=== PATIENT | female | born 1940 | race Caucasian/White ===

== ENCOUNTER → 2017-07-14 | Outpatient (CLI) | payer MEDICARE, BC ==
[~2017-07-14] MED LIST: ACETAMINOPHEN-H1 TA2 PO; BENICAR HCT 12.1 TA1 PO; CLINDAMYCIN HC300 MG PO; DAYPRO600 M1 PO; LEVOTHYROXIN0.075 M1 PO; METOPROLOL TAR100 M1 PO; SIMVASTATIN20 MG PO; VENLAFAXINE HYD75 M3 PO; XARE20MG PO; XARELTO15 M1 PO; ZITHROMAX Z PA250 MG PO; ZYRTEC10 MG PO
== END | disposition home or self-care (01) ==
LOC: US 12:24
DX: I82.511 Chronic embolism and thrombosis of right femoral vein (principal)

== ENCOUNTER → 2018-06-18 | Outpatient (CLI) | payer MEDICARE, BC ==
[~2018-06-18] MED LIST changes: +ASPIRIN81 M1 PO; -LEVOTHYROXIN0.075 M1 PO; +UNITHROID88 MCG PO; +VITAMIN D22000 UNIT PO
== END | disposition home or self-care (01) ==
LOC: RAD 10:32
DX: I51.7 Cardiomegaly (principal); I10 Essential (primary) hypertension

== ENCOUNTER → 2018-06-24 | Outpatient (CLI) | payer MEDICARE, BC | END | disposition home or self-care (01) | LOC: US 06-15 13:30 | DX: I82.531 Chronic embolism and thrombosis of right popliteal vein (principal) ==

== ENCOUNTER → 2018-07-02 | Outpatient (CLI) | payer MEDICARE, BC | END | disposition home or self-care (01) | LOC: CARD 03:24 | DX: I07.1 Rheumatic tricuspid insufficiency (principal); R06.09 Other forms of dyspnea ==

== ENCOUNTER → 2018-07-17 | Outpatient (CLI) | payer MEDICARE, BC ==
--- NOTE | ~2018-07-17 | ST ---
[place], [place] EXERCISE STRESS TEST REPORT [id number] UNIT #: [id number] ROOM: DOCTOR: SARAN MATHIS,KRISHNA BIRTHDATE: [birth year] DOS: 07/17/2018 L[place]ISC[place] STRESS TEST REASON FOR TEST: Shortness of breath. REFERRING PHYSICIAN: Bry Cook, nurse practitioner . PHYSICAL EXAMINATION NECK: Supple. LUNGS: Clear anteriorly. HEART: Regular rhythm. PROTOCOL: Lexiscan protocol. Maximum heart rate 97. Peak blood pressure 130/58. SYMPTOMS: The patient has chest pain. EKG: Resting EKG shows sinus rhythm with nonspecific inferolateral ST-T changes. Stress EKG showed no new ischemia, no arrhythmias. CONCLUSION: Clinically, the patient with chest pain. EKG, no new ischemia compared to baseline. POST-STRESS COMPLICATIONS: None. The patient received a total of 0.4 mg Lexiscan. KRISHNA NOONAN MD CM:STRESS:EXERCISE STRESS TEST REPORT [id number] KRISHNA NOONAN MD
== END | disposition home or self-care (01) ==
LOC: CARD 03:46
DX: D53.9 Nutritional anemia, unspecified (principal); R06.09 Other forms of dyspnea; I82.531 Chronic embolism and thrombosis of right popliteal vein; N18.3 Chronic kidney disease, stage 3 (moderate); R53.81 Other malaise

== ENCOUNTER 2019-06-17 11:33 | Inpatient (IN) | payer MEDICARE, BC ==
[~2019-06-17] VITALS: Ht 162.5 cm; Wt 89.8 kg
--- NOTE | ~2019-06-17 | EKG ---
[place], [place] ELECTROCARDIOGRAM REPORT NAME: KARIN TELLES UNIT #: [id number] ROOM: 426 DOCTOR: EVANGELIST DRAFT REPORT BIRTHDATE: [birth year] [facility] Test Date: 2019-06-17 Test Time: 11:56:05 Pat Name: KARIN TELLES Department: Room: 426 Gender: F Food Service Kitchen Supervisor: KAILEY : 1940 Requested By: JOSE A MULLER Order Number: [id number] Reading MD: Tacho Cortez MD Measurements Intervals [place] Rate: 71 P: 36 TX: 162 QRS: 1 QRSD: 96 T: 184 QT: 431 QTc: 469 Interpretive Statements Sinus rhythm Abnormal R-wave progression, late transition Nonspecific ST \T\ T abnormalities, inferior and lateral leads Electronically Signed On 06-18-2019 4:59:38 PDT by Tacho Cortez MD CM:EKGRPT:ELECTROCARDIOGRAM REPORT [id number] JOSE A BLANCA DRAFT REPORT JOSE A MULLER MD
[~2019-06-17 11:33] MED LIST changes: +MIRALAX POWDER17 G1 PO
[2019-06-17 11:35] VITALS: BP 146/35
--- NOTE | 2019-06-17 11:48 | NUR ---
PATIENT DENIES ANY WOUNDS AT THIS TIME A&OX4.
[2019-06-17 12:20] LABS: MEAN CELL VOLUME 103.8 fl (81.0-99.0); MEAN CORPUSCULAR HGB 35.5 pg (27.0-31.0); MEAN CORPUSCULAR HGB CONC 34.2 g/dl (33.0-37.0); MEAN PLATELET VOLUME 11.3 fl (9.6-12.3); PLATELET COUNT AUTOMATED 82 10*3/uL (130-400); RED BLOOD COUNT 1.86 10*6/uL (4.10-5.10); RED CELL DISTRI WIDTH 20.1 % (0-14.5)
[2019-06-17 12:29] LABS: ACT PARTIAL THROMBO TIME 25.4 SECONDS (20.0-32.1); INTERNATIONAL NORM RATIO 1.1 (2.0-3.5)
[2019-06-17 12:34] LABS: WHITE BLOOD COUNT 1.7 10*3/uL (4.8-10.8)
[2019-06-17 12:35] LABS: HEMATOCRIT 19.3 % (37.0-47.0); HEMOGLOBIN 6.6 g/dl (12.0-16.0)
--- NOTE | 2019-06-17 12:35 | NUR ---
CRITICAL RESULT CALLED FOR PATIENT. WBC-1.7, HEMOGLOBIN-6.6, HCT- 19.3. DR MULLER NOTIFIED.
[2019-06-17 12:37] LABS: ALBUMIN 3.4 gm/dl (3.1-4.5); BUN 16 mg/dl (7-24); CHLORIDE 106 mmol/L (98-107); CREATININE 1.19 mg/dL (0.55-1.02); POTASSIUM 3.5 mmol/L (3.5-5.1); SGOT/AST 64 IU/L (3-35); SGPT/ALT 63 U/L (12-78); SODIUM 138 mmol/L (136-145)
[2019-06-17 12:40] LABS: ALKALINE PHOSPHATASE 82 U/L (45-117)
[2019-06-17 12:43] LABS: BASOPHILS 1 % (0-1); PLATELET SUFFICIENCY LOW (NORMAL); POLYCHROMASIA SLIGHT; TOTAL CELLS COUNTED 100 #CELLS
[2019-06-17 12:44] LABS: OVALOCYTES FEW
[2019-06-17 12:48] LABS: TROPONIN I < 0.015 ng/ml (<0.045)
[2019-06-17 13:24] VITALS: BP 136/34
[2019-06-17 14:00] VITALS: BP 156/48
--- NOTE | 2019-06-17 14:08 | NUR ---
Time: 1407 A 78 year old FEMALE admitted to 4E under services of GARY VELOZ DO. Pt. arrived via stretcher from ER. Chief complaint: WEAKNESS, SOB, LOW WBC. PATTIE RODRIGUEZ
--- NOTE | 2019-06-17 14:15 | NUR ---
PATIENT BEDSIDE REPORT GIVEN TO PATTIE WEIR. NO CHANGE IN MENTAL STATUS.
--- NOTE | 2019-06-17 14:53 | NUR ---
Called and spoke with Bárbara Lovelace Pharmacist regarding need for home meds. Pt states she does not have a list and family is not with her. Offered to call pt family and she states they would not know meds. Requested list to be faxed to [facility] from pharmacy. Placed on hold.
--- NOTE | 2019-06-17 14:56 | NUR ---
Spoke with Clotilde pharmacist at [facility], requested list be faxed. States she would and I provided fax number. Awaiting med list.
--- NOTE | 2019-06-17 15:22 | NUR ---
PT UNSURE IF STILL TAKING SIMVASTATIN. DR GURROLA NOTIFIED MED WAS LEFT ON MED REC, OTHER MEDS UPDATED.
[2019-06-17 16:00] VITALS: BP 144/43
--- NOTE | 2019-06-17 17:22 | NUR ---
Daughter visiting. Explained med given and staff wearing mask to protect pt from any bacteria or virus due to low WBC count.
--- NOTE | 2019-06-17 19:44 | NUR ---
24 HOUR CHART CHECK COMPLETED AT THIS TIME
[2019-06-17 20:00] VITALS: BP 135/42
[2019-06-17 21:33] LABS: BILIRUBIN NEGATIVE (NEGATIVE); BLOOD NEGATIVE (NEGATIVE); CLARITY CLEAR (CLEAR); COLOR YELLOW (YELLOW); GLUCOSE NEGATIVE (NEGATIVE); KETONE NEGATIVE (NEGATIVE); LEUKO ESTERASE NEGATIVE (NEGATIVE); NITRITE NEGATIVE (NEGATIVE); PH 5.5 (5.0-9.0); SPECIFIC GRAVITY 1.015 (1.005-1.030)
[2019-06-17 21:47] LABS: EPITHELIAL CELLS 16-20
[2019-06-17 21:48] LABS: BACTERIA 1+
--- NOTE | 2019-06-17 23:50 | NUR ---
DR. MELENDEZ NOTIFIED AT THIS TIME THAT PATIENT WAS REQUESTING SOMETHING FOR SLEEP, ORDERS RECEIVED, SEE EMAR.
[2019-06-18] VITALS (12 sets, daily range): BP systolic 116–152; BP diastolic 46–60
--- NOTE | 2019-06-18 02:15 | NUR ---
ORDERED UNIT OF PACKED RED BLOOD CELLS STARTED AT THIS TIME, SEE BLOOD TRANSFUSION INTERVENTION. PATIENT TOLERATING WELL, WILL CONTINUE TO MONITOR.
--- NOTE | 2019-06-18 05:20 | NUR ---
BLOOD TRANSFUSION COMPLETE.
[2019-06-18 06:30] LABS: HEMOGLOBIN 7.1 g/dl (12.0-16.0); MEAN CORPUSCULAR HGB 33.6 pg (27.0-31.0); MEAN CORPUSCULAR HGB CONC 33.8 g/dl (33.0-37.0); MEAN PLATELET VOLUME 11.3 fl (9.6-12.3); PLATELET COUNT AUTOMATED 73 10*3/uL (130-400); RED BLOOD COUNT 2.11 10*6/uL (4.10-5.10); RED CELL DISTRI WIDTH 21.5 % (0-14.5)
[2019-06-18 06:44] LABS: BUN 15 mg/dl (7-24); CHLORIDE 106 mmol/L (98-107); CREATININE 0.97 mg/dL (0.55-1.02); PHOSPHOROUS 3.8 mg/dL (2.5-4.9); POTASSIUM 3.4 mmol/L (3.5-5.1); SODIUM 140 mmol/L (136-145)
[2019-06-18 07:02] LABS: MEAN CELL VOLUME 99.5 fl (81.0-99.0)
[2019-06-18 07:28] LABS: BASOPHILS 1 % (0-1); BURR CELLS FEW; PLATELET SUFFICIENCY LOW (NORMAL); SCHISTOCYTES FEW; TOTAL CELLS COUNTED 100 #CELLS
--- NOTE | 2019-06-18 08:30 | NUR ---
BLOOD TRANSFUSION INITIATED AT THIS TIME. ALL IDENTIFIERS VERIFIED BY TWO RNS. TRANSFUSION EXPLAINED TO PT. PT VITALS WNL. NO NEW ABNORMALITIES NOTED. IV SITE TO RIGHT ANTECUBITAL PATENT, FLUSHING AND GIVING BLOOD RETURN. DRESSING N TACT. WILL CONTINUE TO MONITOR. CALL LIGHT IN REACH.
--- NOTE | 2019-06-18 09:00 | NUR ---
Rib Stiffener And Heel Dipper in to talk to patient. Patient states lives at home with and daughter. There are few steps in the home. Physician: faby carey Pharmacy: [facility] [place] [facility]: none Patient's level of ADLs: INDEPENDENT Patient has working utilities: all working DME: none Follow-up physician's appointment after d/c: will be made by hospitalist nurse director upon discharge Does patient want to access PORTAL?: no Discharge plan discussed with patient, she lives at home with and daughter, she states she is independent in adls and ambulation, she states she will be returning home when able, discussed with her VNA and explained their servcies, she declined any home services at this time, case management will follow. BETO BRONSON
[2019-06-18 09:48] LABS: HEMATOCRIT 23.2 % (37.0-47.0); MEAN CELL VOLUME 97.5 fl (81.0-99.0); MEAN CORPUSCULAR HGB 33.6 pg (27.0-31.0); MEAN CORPUSCULAR HGB CONC 34.5 g/dl (33.0-37.0); MEAN PLATELET VOLUME 10.7 fl (9.6-12.3); NUCLEATED RED BLOOD CELL 1.2 % (0.0-0.0); PLATELET COUNT AUTOMATED 67 10*3/uL (130-400); RED BLOOD COUNT 2.38 10*6/uL (4.10-5.10); RED CELL DISTRI WIDTH 21.2 % (0-14.5)
[2019-06-18 10:20] LABS: WHITE BLOOD COUNT 1.6 10*3/uL (4.8-10.8)
[2019-06-18 10:25] LABS: OVALOCYTES FEW; POLYCHROMASIA SLIGHT; TOTAL CELLS COUNTED 100 #CELLS
[2019-06-18 10:26] LABS: BURR CELLS FEW; PLATELET SUFFICIENCY LOW (NORMAL); SCHISTOCYTES FEW
--- NOTE | 2019-06-18 11:19 | NUR ---
TRANSFUSION OF ONE UNIT PRBC COMPLETE AT THIS TIME. NO S/S OF DISTRESS. VITALS WNL. RESPIRATIONS EASY AND UNLABORED. PT TOLERATED WELL. WILL CONTINUE TO MONITOR. PT SITTING UP IN BED. CALL LIGHT IN REACH.
--- NOTE | 2019-06-18 12:00 | NUR ---
PT SITTING UP IN BED, ALERT ORIENTED AND PLEASANT MOOD WITH NO COMPLAINTS OF SOB OR CHEST PAIN. NO N/V/D. PT DENIES NEEDING ANYTHING. PT SITTING WITH FAMILY IN ROOM. WILL CONTINUE TO MONITOR. CALL LIGHT IN REACH.
[2019-06-18 13:42] LABS: HEMATOCRIT 25.4 % (37.0-47.0); HEMOGLOBIN 8.7 g/dl (12.0-16.0); MEAN CELL VOLUME 95.5 fl (81.0-99.0); MEAN CORPUSCULAR HGB 32.7 pg (27.0-31.0); MEAN CORPUSCULAR HGB CONC 34.3 g/dl (33.0-37.0); MEAN PLATELET VOLUME 10.6 fl (9.6-12.3); NUCLEATED RED BLOOD CELL 1.3 % (0.0-0.0); PLATELET COUNT AUTOMATED 69 10*3/uL (130-400); RED BLOOD COUNT 2.66 10*6/uL (4.10-5.10)
[2019-06-18 13:48] LABS: WHITE BLOOD COUNT 1.6 10*3/uL (4.8-10.8)
[2019-06-18 14:03] LABS: BASOPHILS 1 % (0-1); OVALOCYTES FEW; PLATELET SUFFICIENCY LOW (NORMAL); POLYCHROMASIA SLIGHT; TOTAL CELLS COUNTED 100 #CELLS
--- NOTE | 2019-06-18 15:24 | NUR ---
Discharge instructions reviewed with patient/family. Patient receptive and verbalizes understanding. Follow-up care arranged. Written instructions given to patient/family. LOR SUTTON
== END 2019-06-18 15:24 | disposition home or self-care (01) | DRG 809 ==
LOC: ED 11:33 → EDHOLD 13:18 → 4E 13:18 → EDHOLD 13:56 → 4E 14:23
PROVIDERS: Emergency Medicine; Student in an Organized Health Care Education/Training Program; ADMIT Internal Medicine
PROC: 30233N1 Transfusion of Nonautologous Red Blood Cells into Peripheral Vein, Percutaneous Approach (ICD-10-PCS; principal; 2019-06-18)
DX: D61.810 Antineoplastic chemotherapy induced pancytopenia (principal); E44.1 Mild protein-calorie malnutrition; E87.2 Acidosis; T45.1X5A Adverse effect of antineoplastic and immunosuppressive drugs, initial encounter; I12.9 Hypertensive chronic kidney disease with stage 1 through stage 4 chronic kidney disease, or unspecified chronic kidney disease; N18.3 Chronic kidney disease, stage 3 (moderate); F32.9 Major depressive disorder, single episode, unspecified; E78.00 Pure hypercholesterolemia, unspecified; E03.9 Hypothyroidism, unspecified; E66.9 Obesity, unspecified; R74.0 Nonspecific elevation of levels of transaminase and lactic acid dehydrogenase [LDH]; R73.9 Hyperglycemia, unspecified; D46.9 Myelodysplastic syndrome, unspecified; Z88.2 Allergy status to sulfonamides; Z79.899 Other long term (current) drug therapy; Z86.718 Personal history of other venous thrombosis and embolism; Z90.49 Acquired absence of other specified parts of digestive tract; Z98.51 Tubal ligation status; Z82.49 Family history of ischemic heart disease and other diseases of the circulatory system; Z83.3 Family history of diabetes mellitus; Y92.89 Other specified places as the place of occurrence of the external cause; Z79.82 Long term (current) use of aspirin; Z68.34 Body mass index [BMI] 34.0-34.9, adult

== ENCOUNTER 2019-07-03 21:56 | Inpatient (IN) | payer MEDICARE, BC ==
[~2019-07-03] VITALS: Ht 162.6 cm; Wt 90.7 kg
--- NOTE | ~2019-07-03 | EKG ---
[place], [place] ELECTROCARDIOGRAM REPORT NAME: KARIN TELLES UNIT #: [id number] ROOM: 504 DOCTOR: EVANGELIST DRAFT REPORT BIRTHDATE: [birth year] [facility] Test Date: 2019-07-03 Test Time: 22:52:14 Pat Name: KARIN TELLES Department: Room: 406 Gender: F Business Planning Manager: : 1940 Requested By: TJ COFFMAN DNP Order Number: [id number] Reading MD: Roxanne Hannah Measurements Intervals [place] Rate: 87 P: 33 NE: 165 QRS: 6 QRSD: 92 T: 13 QT: 451 QTc: 543 Interpretive Statements Sinus rhythm Borderline T abnormalities, anterior leads Prolonged QT interval Compared to ECG 06/17/2019 11:56:05 Prolonged QT interval now present T-wave abnormality still present Electronically Signed On 07-04-2019 11:11:30 PDT by Roxanne Hannah CM:EKGRPT:ELECTROCARDIOGRAM REPORT [id number] TJ JENNINGSANY DRAFT REPORT TJ COFFMAN DNP
[2019-07-03 22:00] VITALS: BP 151/63
--- NOTE | 2019-07-03 22:26 | NUR ---
PT PRESENTS WITH WEEKLESS AND NAUSEA, STATES ONLY EMESIS X2 TODAY. PT WAS AFRAID DUE TO HER WEAKNESS HER "LABS" ARE OFF. PT IS AWAKE AND ORINETED X2, ABD SOFT, NONTENDER NO DISTENDENTION.
--- NOTE | 2019-07-03 23:15 | NUR ---
REPORT GIVEN TO CHAY WEIR
[2019-07-03 23:24] LABS: HEMOGLOBIN 9.9 g/dl (12.0-16.0); MEAN CELL VOLUME 98.6 fl (81.0-99.0); MEAN CORPUSCULAR HGB 33.7 pg (27.0-31.0); MEAN CORPUSCULAR HGB CONC 34.1 g/dl (33.0-37.0); MEAN PLATELET VOLUME 9.7 fl (9.6-12.3); PLATELET COUNT AUTOMATED 223 10*3/uL (130-400); RED BLOOD COUNT 2.94 10*6/uL (4.10-5.10); RED CELL DISTRI WIDTH 22.4 % (0-14.5); WHITE BLOOD COUNT 2.2 10*3/uL (4.8-10.8)
[2019-07-03 23:40] LABS: ACT PARTIAL THROMBO TIME 25.9 SECONDS (20.0-32.1); ALBUMIN 3.6 gm/dl (3.1-4.5); ALKALINE PHOSPHATASE 80 U/L (45-117); BUN 16 mg/dl (7-24); CHLORIDE 101 mmol/L (98-107); INTERNATIONAL NORM RATIO 1.1 (2.0-3.5); LIPASE 111 U/L (73-393); POTASSIUM 3.3 mmol/L (3.5-5.1); SGOT/AST 43 IU/L (3-35); SGPT/ALT 46 U/L (12-78); SODIUM 137 mmol/L (136-145); TOTAL PROTEIN 7.6 gm/dL (6.4-8.2)
[2019-07-03 23:44] LABS: TROPONIN I < 0.015 ng/ml (<0.045)
[2019-07-03 23:50] LABS: PLATELET SUFFICIENCY NORMAL (NORMAL); TOTAL CELLS COUNTED 100 #CELLS
[2019-07-03 23:51] LABS: SCHISTOCYTES FEW
[2019-07-04] MEDS ORDERED: ZOFRAN4 MG PO (01:06)
--- NOTE | 2019-07-04 04:00 | NUR ---
PT REPORTS SHE IS NAUSEATED AND DOESN'T WANT TO SIT UP. DR AMAYA AWARE.
--- NOTE | 2019-07-04 04:57 | NUR ---
RESTING QUIETLY WITH EYES CLOSED. NO COMPLAINTS AT THIS TIME. DAUGHTER WENT HOME.
[2019-07-04 07:06] VITALS: BP 120/44
--- NOTE | 2019-07-04 07:16 | NUR ---
REPORT GIVEN TO VAN WEIR
[2019-07-04 11:20] VITALS: BP 134/40
--- NOTE | 2019-07-04 11:20 | NUR ---
Time: 1119 A 78 year old FEMALE admitted to 5E under services of WANG GARNER DO. Pt. arrived via bed from ER. Chief complaint: NAUSEA/VOMITING. VALORIE NELI
--- NOTE | 2019-07-04 11:37 | NUR ---
MED REC UPDATED PER POLICY.
[2019-07-04 16:00] VITALS: BP 138/57
[2019-07-04 18:00] VITALS: BP 138/57
[2019-07-04 20:00] VITALS: BP 148/50
[2019-07-05] VITALS: BP 131/76
[2019-07-05 06:43] LABS: HEMATOCRIT 24.3 % (37.0-47.0); HEMOGLOBIN 8.1 g/dl (12.0-16.0); MEAN CORPUSCULAR HGB 33.9 pg (27.0-31.0); MEAN CORPUSCULAR HGB CONC 33.3 g/dl (33.0-37.0); MEAN PLATELET VOLUME 10.1 fl (9.6-12.3); RED BLOOD COUNT 2.39 10*6/uL (4.10-5.10); RED CELL DISTRI WIDTH 23.3 % (0-14.5); WHITE BLOOD COUNT 2.5 10*3/uL (4.8-10.8)
[2019-07-05 06:51] LABS: BUN 17 mg/dl (7-24); CHLORIDE 108 mmol/L (98-107); CREATININE 1.05 mg/dL (0.55-1.02); PHOSPHOROUS 2.6 mg/dL (2.5-4.9); POTASSIUM 3.7 mmol/L (3.5-5.1); SODIUM 143 mmol/L (136-145)
[2019-07-05 06:53] LABS: MEAN CELL VOLUME 101.7 fl (81.0-99.0); PLATELET COUNT AUTOMATED 148 10*3/uL (130-400)
[2019-07-05 07:09] LABS: OVALOCYTES FEW; PLATELET SUFFICIENCY NORMAL (NORMAL); POLYCHROMASIA SLIGHT; TOTAL CELLS COUNTED 100 #CELLS
[2019-07-05 08:00] VITALS: BP 141/50
--- NOTE | 2019-07-05 11:35 | NUR ---
SHOWER COMPLETED. Hep Lock discontinued. Site asymptomatic. Pressure applied. Sterile dressing applied. Discharge instructions reviewed with patient/family. Patient receptive and verbalizes understanding. Follow-up care arranged. Written instructions given to patient/family. NATHAN GUZMÁN
--- NOTE | 2019-07-05 12:58 | NUR ---
Occupational Therapy referral received. Patient discharged today before eval could be completed. Dipti Goodrich OTR/l
== END 2019-07-05 11:45 | disposition home health service (06) | DRG 640 ==
LOC: ED 21:56 → 5E 07-04 06:55 → EDHOLD 07-04 06:55 → 4E 07-04 10:34 → 5E 07-04 10:34
PROVIDERS: Family Medicine; Nurse Practitioner Family; ADMIT Emergency Medicine
DX: E86.0 Dehydration (principal); N17.0 Acute kidney failure with tubular necrosis; R65.10 Systemic inflammatory response syndrome (SIRS) of non-infectious origin without acute organ dysfunction; R17 Unspecified jaundice; D46.9 Myelodysplastic syndrome, unspecified; E87.6 Hypokalemia; I45.81 Long QT syndrome; E66.9 Obesity, unspecified; I12.9 Hypertensive chronic kidney disease with stage 1 through stage 4 chronic kidney disease, or unspecified chronic kidney disease; N18.3 Chronic kidney disease, stage 3 (moderate); E78.00 Pure hypercholesterolemia, unspecified; F41.9 Anxiety disorder, unspecified; E78.5 Hyperlipidemia, unspecified; R73.9 Hyperglycemia, unspecified; R71.8 Other abnormality of red blood cells; E03.9 Hypothyroidism, unspecified; F32.9 Major depressive disorder, single episode, unspecified; Z86.718 Personal history of other venous thrombosis and embolism; Z92.21 Personal history of antineoplastic chemotherapy; Z90.49 Acquired absence of other specified parts of digestive tract; Z98.51 Tubal ligation status; Z82.49 Family history of ischemic heart disease and other diseases of the circulatory system; Z88.2 Allergy status to sulfonamides; Z79.899 Other long term (current) drug therapy; Z79.890 Hormone replacement therapy; Z79.01 Long term (current) use of anticoagulants; Z86.73 Personal history of transient ischemic attack (TIA), and cerebral infarction without residual deficits; Z83.3 Family history of diabetes mellitus; Z68.34 Body mass index [BMI] 34.0-34.9, adult

== ENCOUNTER 2019-12-10 08:57 | Emergency (ER) | payer MEDICARE, BC ==
[~2019-12-10] VITALS: Ht 162.5 cm; Wt 90.7 kg
[~2019-12-10 08:57] MED LIST changes: +ZOFRAN4 MG PO
[2019-12-10 09:04] VITALS: BP 152/50
[2019-12-10] MEDS ORDERED: CEPHALEXIN500 M1 PO (09:39)
== END 2019-12-10 11:21 | disposition home or self-care (01) ==
LOC: ED 08:57
DX: L03.116 Cellulitis of left lower limb (principal); I10 Essential (primary) hypertension; E78.00 Pure hypercholesterolemia, unspecified; E03.9 Hypothyroidism, unspecified; Z88.2 Allergy status to sulfonamides; Z79.899 Other long term (current) drug therapy; Z90.49 Acquired absence of other specified parts of digestive tract; Z86.73 Personal history of transient ischemic attack (TIA), and cerebral infarction without residual deficits